=== PATIENT | male | born 1950 | race Caucasian/White ===

== ENCOUNTER 2020-07-20 09:00 | Outpatient (RCR) | payer MEDICARE, SELFPAY ==
--- NOTE | 2020-06-15 15:17 | PTOPEVAL ---
Thank you for referring Kehinde Paulson to [facility].? The patient is scheduled to be seen for therapy? 2 x/week for 5 weeks. Please review, sign, date and return this plan of care [facility]. I agree with and certify that the following plan of care is medically necessary. Referring Physician Date Attending Provider: Antonio Villavicencio MD Referring Provider: *GODWIN Outpatient Evaluation Start: 06/15/20 14:05 Freq: Status: Active Protocol: Document 06/15/20 14:04 PAULA (Rec: 06/15/20 15:01 PAULA [id number]) Therapy Assessment Status Assessment Status Assessment Status Evaluation Outpatient Past Medical History Past Medical History Source of Past Medical History Patient,Recalled from Previous Visit, Confirmed with Patient /Family Evaluation Information Problem Diagnosis left adhesive capsulitis Onset 3 months ago Additional Evaluation Detail He received an injection in his shoulder Subjective Information HE was swimming when he felt Query Text:As Reported By Patient/ something in his left shoulder Family . He had changes the hand paddle type he was using and thinks this might have contributed to his pain. He limited his swimming,but cont to lift weights. He denies problems with overhead presss. He is unable to perform the circumduciton motion of left shoulder. He has limitation with reaching behind his back. He has increased pain with sleeping on right side and unsure where to position the left arm. Denies pain with sitting or use of computer. He does not perform any stretches. Pain Assessment Timing of Pain Assessment Timing of Pain Assessment Assessment Pain Scale Pain Scale Used Numeric (1 - 10) Self Report Pain Assessment Left Shoulder(s) Reported Pain Level 5 Pain Description Aching,Tender on Palpation Pain Frequency Continuous Pain Aggravating Factors ADL's,Lifting,Prolonged Position Pain Score Pain Score 5: Self Report Interventions Used Interventions Used By Clinicians Education,Heat Upper Extremity Range of Motion Scapular/ Shoulder Range of Motion Right Shoulder Flexion - Active 168
--- NOTE | 2020-07-20 11:46 | PTOPEVAL ---
Thank you for referring Kehinde Paulson to [facility].? Pt has attended 4 therapy visits to address shoulder impairments. He is progressing towards therapy goals with improved UE strength, range and function. The patient is scheduled to be seen for therapy? 2 x/week for 3 weeks. Please review, sign, date and return this plan of care ZAYDA. I agree with and certify that the following plan of care is medically necessary. Referring Physician Date Attending Provider: Antonio Villavicencio MD Physical Therapy progress note Problem Diagnosis left adhesive capsulitis Onset 3 months ago Additional Evaluation Detail He received an injection in his shoulder Subjective Information He is swimming, but not Query Text:As Reported By Patient/ performing the freestyle. He Family is swimming only 1x/wk due to work schedule. He reports he is able to sleep better without increased pain. He denies problems with overhead press. He is able to perform the circumduction motion of left shoulder in standing. He has tried freestyle motion with swimming. He has improved ability to reach behind his back without increased pain. He is performing overhead press at 35# htierry without pain. Pain Assessment Left Shoulder(s) Reported Pain Level 2 Pain Description Aching Lowest Pain Intensity 0 Greatest Pain Intensity 2 Upper Extremity Range of Motion Right Shoulder Flexion - Active 170 Shoulder Extension - Active 60 Shoulder Abduction - Active 155 Shoulder Medial Rotation - Active 65 Shoulder Medial Rotation - Active T10 Query Text:Reach Behind the Back Shoulder Lateral Rotation - Active 85 Shoulder Lateral Rotation - Active C6 Query Text:Reach Behind the Head Scapular/Shoulder Range of Motion right elbow ext- -28 dg Comments Left Shoulder Flexion - Active 160 Shoulder Extension - Active 50 Shoulder Abduction - Active 152 Shoulder Medial Rotation - Active 70 Shoulder Medial Rotation - Active T10 Query Text:Reach Behind the Back Shoulder Lateral Rotation - Active 85 Shoulder Lateral Rotation - Active C6 Query Text:Reach Behind the Head Scapular/Shoulder Range of Motion Joint Instability Limitations Upper Extremity Muscle Strength Testing Scapular/Shoulder Right Shoulder Elevation - Upper Trapezius 5 Normal Scapular Retraction - Middle Trapezius 3+ F
--- NOTE | 2020-08-13 07:38 | PCPTNOTE ---
Admitting Provider: Attending Provider: Antonio Villavicencio MD Patient:Kehinde Paulson Date of :1950 Discharge Note Patient has not returned for any further treatments since 07/20/2020 at his last therapy update, therefore he will be discharged at this time. Patient?s initial visit was on 06/15/2020 14:00 and he had a total of 4 therapy visits. The goals have been partially met with no change in status since update on 07/20/20. Thank you for referring this patient to [facility]. Please review, sign, date and return this discharge summary ZAYDA. I have been updated about the patient's current status and I agree with discharge from the above service at this time. Referring Physician Date
== END 2020-08-13 14:36 | disposition home or self-care (01) ==
LOC: ANHPT 09:00
PROVIDERS: PCP Family Medicine; Visit Provider Orthopaedic Surgery
DX: M75.02 Adhesive capsulitis of left shoulder (principal)
CPT/HCPCS: 97110; 97112; 97140; 97162

== ENCOUNTER → 2020-10-03 15:13 | Outpatient (CLI) | payer MEDICARE, SELFPAY ==
--- NOTE | ~2020-10-03 | MR_ITS ---
EXAMINATION: MR shoulder LT wo con DATE: 10/03/2020 17:17 INDICATION: Left shoulder pain TECHNIQUE: Magnetic resonance imaging (MRI) of the left shoulder was performed without intravenous co ntrast. Sequences included axial PD-weighted FS FSE, coronal oblique PD-weighted FS FSE, coronal obli que T2-weighted FS FSE, sagittal PD-weighted FS FSE, and sagittal T1-weighted SE. COMPARISON: 05/31/2020 FINDINGS: Coracoacromial arch: The acromion undersurface is curved in morphology (type II). The coracoacromial ligament is normal. M ild to moderate acromioclavicular osteoarthritis. Rotator cuff: Mild to moderate supraspinatus and moderate infraspinatus tendinopathy without discrete tear. The ter es minor tendon is normal. There is a full-thickness tear involving the cephalad three fourths of the lesser tuberosity attachment of the subscapularis tendon. The inferior most portion of the tendon re tess intact. The bursal side of the tendon remains tethered laterally by the fibers of the transvers e humeral ligament. There is mild fatty atrophy of the cephalad third of the subscapularis muscle bel ly. Biceps tendon, glenoid labrum and glenohumeral cartilage: The long head biceps tendon is not visualized likely torn and retracted below the level of the field of imaging. Degenerative tearing of the 12:30-10:30 position of the superior to posterior superior gl enoid labrum. Mild partial thickness cartilage loss with smooth chondral surface along the inferomedi al aspect of the humeral head. Fluid: Physiologic amount of fluid in the glenohumeral joint and biceps tendon sheath. No loose osteochondra l bodies. Mild increased fluid signal in the subacromial/subdeltoid bursa consistent with minimal bur sitis. Bones: Bone alignment is normal. No fracture or pathologic marrow replacing process. Small region of increas ed marrow signal with overlying subtle cortical irregularity along the superolateral margin of the ar ticular surface of the humeral head medial to the junction of the superior and middle facet footplate s of the supraspinatus and infraspinatus tendons. IMPRESSION: 1. Full-thickness tear involving the cephalad three quarters of the lesser tuberosity footplate of th e subscapularis tendon which remains tethered laterally by the intact inferior portion of the tendon and the bursal most fibers of the tendon which remain contiguous with the transverse humeral ligament . 2. Mild glenohumeral osteoarthritis with degenerative tearing of the superior to posterior superior g lenoid labrum. 3. Mild to moderate acromioclavicular osteoarthritis with minimal underlying subacromial/subdeltoid b ursitis. Reviewed, dictated and finalized at location A. IMPRESSION: 1. Full-thickness tear involving the cephalad three quarters of the lesser tube rosity footplate of the subscapularis tendon which remains tethered laterally b y the intact inferior portion of the tendon and the bursal most fibers of the t endon which remain contiguous with the transverse humeral ligament. 2. Mild glenohumeral osteoarthritis with degenerative tearing of the superior t o posterior superior glenoid labrum. 3. Mild to moderate acromioclavicular osteoarthritis with minimal underlying leija bacromial/subdeltoid bursitis.
== END ==
PROVIDERS: Visit Provider Orthopaedic Surgery
DX: M25.512 Pain in left shoulder (principal); S46.812A Strain of other muscles, fascia and tendons at shoulder and upper arm level, left arm, initial encounter; M19.012 Primary osteoarthritis, left shoulder; S43.432A Superior glenoid labrum lesion of left shoulder, initial encounter
CPT/HCPCS: 73221

== ENCOUNTER → 2020-10-27 01:59 | Outpatient (CLI) | payer MEDICARE, SELFPAY ==
[2020-10-27 19:55] LABS: SARS-CoV-2 RNA PCR Negative
== END ==
PROVIDERS: PCP Family Medicine; Visit Provider Internal Medicine Gastroenterology
DX: Z01.812 Encounter for preprocedural laboratory examination (principal); Z20.822 Contact with and (suspected) exposure to COVID-19
CPT/HCPCS: C9803; U0003; U0005

== ENCOUNTER 2020-10-31 02:43 | Day surgery (SDC) | payer MEDICARE, SELFPAY ==
[2020-10-22 14:05] VITALS: BMI 25.2
[2020-10-31 12:05] VITALS: BP 147/80; PULSE 59; RESP 20; TEMP 36.4; O2SAT 100; BMI 25.2
[2020-10-31] MEDS: LACTATED RINGERS 1,000 ML 150 ML IV CONT (12:23)
--- NOTE | 2020-10-31 12:26 | WPDANESEPPF ---
Anes - Initial Pre Proc Eval Procedure: Operation Date: 10/31/20 13:15 Proposed Procedures p Esophagogastroduodenoscopy - Rashid Calles MD Date/Time: 10/31/20 12:26 Surgeon: Rashid Calles MD Pre Op Diagnosis: dysphagia, GERD Patient Data Age: 70 Gender: M Height: 5 ft 11 in Weight: 82.2 kg Last Vital Signs Temp 97.5 F L 10/31/20 12:05 Pulse 59 L 10/31/20 12:05 Resp 20 10/31/20 12:05 BP 147/80 H 10/31/20 12:05 Pulse Ox 100 10/31/20 12:05 Allergies Allergy/AdvReac Type Severity Reaction Status Date / Time No Known Allergies Allergy Verified 10/31/20 12:03 Home Medications Medication Instructions Recorded Confirmed Type fluticasone propionate 50 1 spray NASAL BID #19.8 ml 07/18/19 10/31/20 Rx mcg/actuation nasal spray,suspension atorvastatin 40 mg tablet 40 mg PO DAILY #30 tablet 04/03/20 10/31/20 Rx omeprazole 20 mg capsule,delayed 20 mg PO DAILY #90 cap 10/02/20 10/31/20 Rx release Patient hx anesthesia problems: none Family hx anesthesia problems: none PMFSH Past Medical History Medical History (Updated 10/16/20 @ 15:43 by Antonio Villavicencio MD) Abnormal fasting glucose Acute non-recurrent maxillary sinusitis Arthritis of left acromioclavicular joint Candidiasis Chronic left shoulder pain Dysphagia Elevated blood pressure reading Left rotator cuff tear Positive ALIA (antinuclear antibody) Surgical History Surgical History H/O knee surgery 1998 Family History Family History Mother Family history of arthritis, Onset Age: 84 Father Family history of renal failure, Onset Age: 85 Social History Social History Smoking status: Never smoker Alcohol intake: never Substance use: never Substance use type: does not use Living arrangements: with family 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[employer] Gender identity (if verbalized by the patient): Male Spiritual care concerns: No Anes - Eval Final PreProcedure Day of Procedure 10/31/20 12:26 Patient weight: normal Heart: regular rate and rhythm Lungs: clear to auscultation Airway: Mallampati scale class II Neurological: alert and oriented Last oral intake: >/= 8 hours ASA classification: II Emergent: no Anesthetic plan: proceed Anesthesia type and monitoring: general GIVS and standard monitoring Informed Consent: The patient's anesthetic plan and its attendant risks and benefits were discussed with the patient/family/POA. Questions were solicited and answers provided to the satisfaction of the patient/family/POA.
--- NOTE | 2020-10-31 12:29 | PM.HPGS ---
History of Present Illness History of Present Illness Consent: Risks, benefits, and alternatives have been discussed and questions answered. Patient agrees to proceed with procedure. Chief complaint: dysphagia, GERD Narrative: Kehinde Paulson is a 70 year old male with food getting stuck at throat, never had egd. Using omeprazole. Review of Systems Constitutional: Constitutional: Denies headache(s) and Denies weakness Eyes: Eyes: Denies blurry vision ENT: Reports Normal hearing present, Denies headache(s) and Denies neck pain Cardiovascular: Cardiovascular: Denies chest pain and Denies dyspnea Respiratory: Respiratory: Denies dyspnea Gastrointestinal: Gastrointestinal: Reports no additional gastrointestinal complaints Genitourinary: Genitourinary: Denies dysuria Musculoskeletal: Musculoskeletal: Denies neck pain Integumentary/Breasts: Skin/Breast: Denies dry skin Neurologic: Reports Normal hearing present, Denies headache(s) and Denies weakness Psychiatric: Psychiatric: Denies anxiety Endocrine: Endocrine: Denies change in body appearance Hematologic/Lymphatic: Hematologic/Lymphatic: Denies easy bleeding Allergic/Immunologic: Allergic/Immunologic: Denies urticaria PMFSH Past Medical History Medical History (Updated 10/16/20 @ 15:43 by Antonio Villavicencio MD) Abnormal fasting glucose Acute non-recurrent maxillary sinusitis Arthritis of left acromioclavicular joint Candidiasis Chronic left shoulder pain Dysphagia Elevated blood pressure reading Left rotator cuff tear Positive ALIA (antinuclear antibody) Surgical History Surgical History H/O knee surgery 1998 Family History Family History Mother Family history of arthritis, Onset Age: 84 Father Family history of renal failure, Onset Age: 85 Social History Social History Smoking status: Never smoker Alcohol intake: never Substance use: never Substance use type: does not use Living arrangements: with family 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 Spiritual care concerns: No Meds Home Medications and Allergies Home Medications Medication Instructions Recorded Confirmed Type fluticasone propionate 50 1 spray NASAL BID #19.8 ml 07/18/19 10/31/20 Rx mcg/actuation nasal spray,suspension atorvastatin 40 mg tablet 40 mg PO DAILY #30 tablet 04/03/20 10/31/20 Rx omeprazole 20 mg capsule,delayed 20 mg PO DAILY #90 cap 10/02/20 10/31/20 Rx release Allergies Allergy/AdvReac Type Severity Reaction Status Date / Time No Known Allergies Allergy Verified 10/31/20 12:03 Vital Signs Vital Signs - 24 hr 10/31/20 12:05 Temperature 97.5 F L Pulse Rate 59 L Respiratory Rate 20 Blood Pressure 147/80 H Pulse Oximetry 100 Exam Const: General: comfortable and no acute distress HENMT: General nose exam: Normal nares present Eyes: General: appearance normal, both eyes and all related structures Neck: Neck: no JVD Resp: Auscultation: clear to auscultation bilaterally Cardio: Rate: regular rate Rhythm: regular rhythm GI: Inspection: non-distended GI Palp: Yes Soft to palpation Skin: General skin exam: normal color Neuro: General: gait normal Speech: normal speech Extrem: General: normal to inspection Psych: Mental Status: mental status grossly normal Assessment and Plan Assessment and plan (1) Dysphagia: Code(s): R13.10 - Dysphagia, unspecified Status: Acute Assessment and Plan: egd to assess
[2020-10-31 12:47] VITALS: BP 103/63; PULSE 75; RESP 21; O2SAT 95
[2020-10-31 12:57] VITALS: BP 130/73; PULSE 58; RESP 19; O2SAT 100
[2020-10-31 13:07] VITALS: BP 136/78; PULSE 62; RESP 19; O2SAT 100
== END 2020-10-31 13:26 | disposition home or self-care (01) ==
PROVIDERS: PCP Family Medicine; Visit Provider Internal Medicine Gastroenterology
PROC: 0DJ08ZZ Inspection of Upper Intestinal Tract, Via Natural or Artificial Opening Endoscopic (ICD-10-PCS; CPT 43235; principal; 2020-10-31 13:15)
DX: K22.2 Esophageal obstruction (principal); K44.9 Diaphragmatic hernia without obstruction or gangrene; K29.50 Unspecified chronic gastritis without bleeding; K21.00 Gastro-esophageal reflux disease with esophagitis, without bleeding
CPT/HCPCS: 43249; 43239; 88305; C1726; C9803; J2001; J2704; J7120; U0003; U0005

== ENCOUNTER 2021-06-05 08:10 | Outpatient (CLI) | payer MEDICARE, SELFPAY ==
--- NOTE | ~2021-06-05 | XR_ITS ---
EXAMINATION: XR barium swallow modified EXAM DATE: 06/05/2021 09:31 INDICATION: R13.10 - Dysphagia, unspecified. TECHNIQUE: Modified barium esophagram was performed by speech pathologist with radiologist Dr. Wilfredo Joya present to administered fluoroscopy. Speech pathologist administered barium in varying consis tencies as per speech pathologist documentation. This was recorded on tape. There was total fluorosc opic time of 2.2 minutes. The DAP for this procedure was 1.5 Gycm2. A total of 3 images sent to PAC S from the exam. FINDINGS: Oral stage: Adequate function. Pharyngeal phase: Pyriform residual, reduced laryngeal elevation and adduction, pharyngeal squeeze. Laryngeal penetration: Demonstrated. Aspiration: Trace. IMPRESSION: Trace aspiration demonstrated; Please refer to speech pathologist findings and specific feeding recommendations. Reviewed, dictated and finalized at location A. TRICAL INTERN
--- NOTE | 2021-06-05 10:34 | STOPEVAL ---
Thank you for referring Kehinde Paulson to [facility].? It is recommended that this patient be scheduled for outpatient Speech Therapy? 2-3x/week for 4 weeks for safe swallowing guidelines, swallowing strengthening exercises, and for VitalStim, neuromuscular electrical stimulation to the throat to facilitate increasing the strength of the swallow. Please review, sign, date and return this plan of care ZAYDA. I agree with and certify that the following plan of care is medically necessary. Referring Physician Date Attending Provider: Manuel Bradshaw MD Outpatient Past Medical History Neurological History Hx Cerebrovascular Accident (CVA) Yes: Unsure Transient Ischemic Attack? Cardiovascular History Hx Cardiac Disorders No Significant History Respiratory History Hx Bronchitis Yes Gastrointestinal History Hx Gastrointestinal Disorders No Significant History Genitourinary History Hx Genitourinary Disorders No Significant History Musculoskeletal History Hx Musculoskeletal Disorders No Significant History Hematological History Hx Hematological Disorders No Significant History Endocrine History Hx Endocrine Disorders No Significant History HEENT History Hx HEENT Disorders No Significant History Integumentary History Hx Skin Disorders No Significant History Reproductive History Hx Reproductive Disorders No Significant History Psychosocial History Hx Psychiatric Disorders No Significant History Pain History History of Any Previous or Ongoing No Significant History Instance of Pain Anesthesia History Hx Anesthesia Reactions No Significant History Evaluation Information Problem Diagnosis Coughing when eating Onset About one year Cause Unsure Subjective Information Patient states he coughs Query Text:As Reported By Patient/ frequently when eating or Family drinking. Reports he had an EGD procedure 6-7 months ago to help clearing material from hanging up in his throat, however he stated, it didn't seem to help. Modified Barium Swallow Evaluation Consistency Solid Consistency 5 mL Method of Presentation Spoon Oral Preparatory Symptoms None,Within Functional Limits Oral Phase Symptoms None,Within Functional Limits Pharyngeal Phase Symptoms Laryngeal Penetration,Reduced Laryngeal Closure,Reduced Laryngeal Elevation Severity of Vallecular Residue Mild - 5-25 % Epiglottic Ligament Visable Severity of Pyriform Sinus Residue Moderate - 25-50 % Up Wall to Half Full 8 Point Laryngeal Penetration-Aspiration Material Enters Airway, Scale
== END 2021-06-05 08:11 | disposition home or self-care (01) ==
LOC: ANHIMG 08:11
PROVIDERS: PCP Family Medicine; Visit Provider Family Medicine
DX: R13.10 Dysphagia, unspecified (principal); I63.9 Cerebral infarction, unspecified
CPT/HCPCS: 92611

== ENCOUNTER 2021-06-12 09:41 | Outpatient (CLI) | payer MEDICARE, SELFPAY ==
--- NOTE | ~2021-06-12 | US_ITS ---
EXAMINATION: US carotid duplex BI DATE: 06/12/2021 11:09 INDICATION: Transient cerebral ischemic attack, unspecified. TECHNIQUE: Grayscale, color Doppler, and pulsed Doppler images of the cervical carotid arteries were obtained. The degree of vessel stenosis is placed in one of the following categories: normal, <50%, 5 0-69%, >=70% but less than near-occlusion, near-occlusion, or total occlusion. Note that percent sten osis relative to normal distal artery lumen diameter is indirectly measured from velocity measurement s as described by Kael, et al. Radiology 2003; 229:340-346. COMPARISON: None. FINDINGS: RIGHT: The right common carotid artery (CCA) peak systolic velocity (PSV) is 79 cm/s. The right internal car otid artery (ICA) PSV is 69 cm/s. The right ICA end-diastolic velocity (EDV) is 22 cm/s. The right IC A/CCA PSV ratio is 0.9. Grayscale and color Doppler images yield an estimate of <50% diameter reducti on from plaque in the ICA. The external carotid artery (ECA) PSV is 91 cm/s. There is antegrade flow in the right vertebral artery. LEFT: The left CCA PSV is 73 cm/s. The left ICA PSV is 66 cm/s. The left ICA EDV is 19 cm/s. The left ICA/C CA PSV ratio is 0.9. Grayscale and color Doppler images yield an estimate of <50% diameter reduction from plaque in the ICA. The ECA PSV is 61 cm/s. There is antegrade flow in the left vertebral artery. IMPRESSION: 1. <50% stenosis in the right internal carotid artery. 2. <50% stenosis in the left internal carotid artery. Reviewed, dictated and finalized at location B. ING MACHINE OPERATOR
--- NOTE | ~2021-06-12 | MR_ITS ---
EXAMINATION: MR brain/brain stem wo/w con DATE: 06/12/2021 10:49 INDICATION: Transient cerebral ischemic attack, unspecified. TECHNIQUE: Magnetic resonance imaging (MRI) of the brain and brainstem was performed without and with 16 mL MultiHance intravenous contrast. Sequences included sagittal and axial T1-weighted FSE, axial diffusion-weighted FS EPI, axial T2*-weighted GRE, axial T2-weighted FLAIR Propeller, and axial T2-we ighted Propeller. Postcontrast sequences included axial and coronal T1-weighted FSE. Apparent diffusi on coefficient (ADC) maps were created. COMPARISON: None. FINDINGS: There are scattered areas of nonspecific increased T2-weighted signal intensity in the cere bral white matter. 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 There is no intracr anial hemorrhage, acute infarction, or abnormal intracranial mass lesion. The ventricles are normal i n size. There is mucosal thickening in the paranasal sinuses. The orbits are normal. The mastoid air cells are normal. IMPRESSION: 1. Mild nonspecific cerebral white matter disease, which likely represents chronic small vessel ische kirsten disease. Reviewed, dictated and finalized at location A. OSE AND SYRUP WEIGHER IMPRESSION: 1. Mild nonspecific cerebral white matter disease, which likely represents liquified natural gas specialist april small vessel ischemic disease.
[2021-06-12 10:23] LABS: Estimated Glomerular Filt Rate > 60
== END 2021-06-12 09:42 | disposition home or self-care (01) ==
PROVIDERS: PCP Family Medicine; Visit Provider Family Medicine
DX: I65.23 Occlusion and stenosis of bilateral carotid arteries (principal); R93.0 Abnormal findings on diagnostic imaging of skull and head, not elsewhere classified
CPT/HCPCS: 70553; 93880; A9577

== ENCOUNTER → 2022-06-05 10:05 | Outpatient (CLI) | payer MEDICARE, SELFPAY ==
--- NOTE | ~2022-06-05 | XR_ITS ---
EXAMINATION: XR lumbar spine min 4V DATE: 06/05/2022 14:24 INDICATION: Low back pain TECHNIQUE: Anteroposterior, lateral, and bilateral oblique views of the lumbar spine, and cone-down l ateral view of the lumbosacral junction were obtained. COMPARISON: None. FINDINGS: There are 2 mm of retrolisthesis of L1 on L2, L2 on L3, and L3 on L4. There is severe loss of intervertebral disc space height at L1-2, L2-3, and L5-S1. The lumbar vertebral body heights are n ormal. There is severe facet joint osteoarthritis of the lower lumbar spine. Calcified atherosclerosi s is noted. IMPRESSION: 1. Moderate to severe lumbar spondylosis. Reviewed, dictated and finalized at location L. OLL ADMINISTRATIVE ASSISTANT
--- NOTE | ~2022-06-05 | XR_ITS ---
EXAMINATION: XR ribs LT 2V w CXR 2V INDICATION: Chest pain after fall TECHNIQUE: Frontal and lateral views of the chest and 3 views of the left ribs were obtained. COMPARISON: None. FINDINGS: There is mild atelectasis of the lung bases. No pleural effusion or pneumothorax. The cardi omediastinal silhouette is normal. There is severe thoracic spondylosis. There appear to be nondispla michael anterolateral fractures of the left fourth and fifth ribs. IMPRESSION: 1. Probable nondisplaced anterolateral fractures of the left fourth and fifth ribs. 2. Mild atelectasis. Reviewed, dictated and finalized at location L. R CUP MACHINE TENDER IMPRESSION: 1. Probable nondisplaced anterolateral fractures of the left fourth and fifth r ibs. 2. Mild atelectasis.
== END ==
PROVIDERS: PCP Family Medicine; Visit Provider Family Medicine
DX: R07.81 Pleurodynia (principal); M54.50 Low back pain, unspecified; J98.11 Atelectasis; M47.816 Spondylosis without myelopathy or radiculopathy, lumbar region
CPT/HCPCS: 71046; 71100; 72110

== ENCOUNTER 2023-08-10 07:53 | Outpatient (CLI) | payer MEDICARE, SELFPAY ==
--- NOTE | ~2023-08-10 | US_ITS ---
EXAMINATION: US art doppler w press LE BI DATE: 08/10/2023 09:03 INDICATION: Peripheral arterial disease. TECHNIQUE: Segmental pressures and plethysmographic and Doppler waveforms of the brachial and lower e xtremity arteries were obtained. COMPARISON: None. FINDINGS: Right and left brachial artery pressures of 126 mm Hg and 121 mm Hg, respectively, are concordant (no rmal difference <= 30 mmHg). The right high-thigh pressure index is 1.29 (normal > 1.2). The right ankle-brachial index (PUNEET) is 1 .24 (normal >= 0.9-1.0). The right great toe-brachial index (TBI) is 1.10 (normal >= 0.65). The right lower extremity segmental pressure gradients are normal (normal gradients <= 20-30 mmHg between ximena cent levels on the same leg or the same levels on the two legs). Arterial Doppler waveforms are at le ast triphasic in common femoral artery, superficial femoral artery, popliteal artery, and posterior t ibial artery and biphasic in dorsalis pedis. The left high-thigh pressure index is 1.25. The left PUNEET is 1.13. The left TBI is 0.98. The left lowe r extremity segmental pressure gradients are normal. Arterial Doppler waveforms are biphasic in commo n femoral artery and at least triphasic from superficial femoral artery to the ankle. IMPRESSION: 1. No significant arterial occlusive disease. Reviewed, dictated and finalized at location E. TION WORKER
== END 2023-08-10 07:54 | disposition home or self-care (01) ==
PROVIDERS: PCP Family Medicine; Visit Provider Podiatrist Foot & Ankle Surgery
DX: I73.9 Peripheral vascular disease, unspecified (principal)
CPT/HCPCS: 93923